=== PATIENT | male | born 1945 | race Caucasian/White ===

== ENCOUNTER 2016-07-01 13:33 | Emergency (ER) | payer OTHER ==
[~2016-07-01] VITALS: Ht 167.6 cm; Wt 70.9 kg
[2016-07-01 13:58] VITALS: BP 125/62
[2016-07-01] MEDS ORDERED: WARFARIN SODIUM2 MG PO (14:40)
[2016-07-01] MEDS ORDERED: METOPROLOL TAR100 MG PO (14:41)
[2016-07-01] MEDS ORDERED: OMEPRAZOLE20 MG PO (14:42)
[2016-07-01] MEDS ORDERED: CARDIZEM CD,CA120 MG PO (14:42)
[2016-07-01] MEDS ORDERED: ALPRAZOLAM0.25 M2 PO ×2 (14:42→14:44)
[2016-07-01] MEDS ORDERED: BUMETANIDE2 MG PO (14:42)
[2016-07-01] MEDS ORDERED: SPIRIVA1 INHALATI IH (14:43)
[2016-07-01] MEDS ORDERED: CENTRUM SILVER1 EAC3 PO (14:43)
[2016-07-01] MEDS ORDERED: ODOR FREE GARL1 EACH PO (14:43)
[2016-07-01] MEDS ORDERED: PROAIR HFA8.5 GM IH (14:43)
[2016-07-01] MEDS ORDERED: POTASSIUM CHLO10 ME3 PO (14:43)
[2016-07-01 15:48] LABS: INTER. NORMALIZED RATIO 2.5; PROTHROMBIN TIME 26.2 (9.2-11.2)
== END 2016-07-01 16:32 | disposition home or self-care (01) ==
LOC: EME 13:33
PROVIDERS: Physician Assistant
DX: S90.31XA Contusion of right foot, initial encounter (principal); W20.8XXA Other cause of strike by thrown, projected or falling object, initial encounter; Z79.01 Long term (current) use of anticoagulants
CPT/HCPCS: 73630; 85610; 99281; 99284

== ENCOUNTER 2017-12-01 13:39 | Inpatient (IN) | payer OTHER ==
[~2017-12-01] VITALS: Ht 167.6 cm; Wt 76.6 kg
[2017-12-01] VITALS (27 sets, daily range): BP systolic 92–119; BP diastolic 55–78
[~2017-12-01 13:39] MED LIST: ALPRAZOLAM0.25 M2 PO; BUMETANIDE2 MG PO; CARDIZEM CD,CA120 MG PO; CENTRUM SILVER1 EAC3 PO; METOPROLOL SUC100 MG PO; ODOR FREE GARL1 EACH PO; OMEPRAZOLE20 MG PO; POTASSIUM CHLO10 ME3 PO; PROAIR HFA8.5 GM IH; SPIRIVA1 INHALATI IH; WARFARIN SODIUM2 MG PO
[2017-12-01 14:30] LABS: HEMATOCRIT 20.3 % (38.0-50.0); HEMOGLOBIN 5.9 G/DL (12.5-16.6); MCHC 29.1 G/DL (30.0-36.0); MCV 72.2 FL (86-99); PLATELET COUNT 283 K/uL (156-360); RBC DIS.WIDTH-SD 51.7 % (39-53); RED BLOOD COUNT 2.81 M/uL (4.00-5.50); WHITE BLOOD COUNT 15.2 K/uL (4.1-10.2)
[2017-12-01 14:31] LABS: CHLORIDE 95 mEq/L (99-109); POTASSIUM 5.6 mEq/L (3.7-5.4); SODIUM 133 mEq/L (136-147)
[2017-12-01 14:32] LABS: GLUCOSE 152 mg/dL (70-99)
[2017-12-01 14:36] LABS: CREATININE 1.9 mg/dL (0.6-1.3); GFR ESTIMATE (CALCULATED) 37 mL/min/ (58.99-99999)
[2017-12-01 14:37] LABS: UREA NITROGEN (BUN) 92 mg/dL (9-23)
[2017-12-01 14:39] LABS: INTER. NORMALIZED RATIO 5.2
[2017-12-01] MEDS ORDERED: METOPROLOL SUC100 MG PO (15:14)
[2017-12-01] MEDS ORDERED: WARFARIN SODIUM2 MG PO (15:17)
[2017-12-01] MEDS ORDERED: ACETAMINOPHEN325 M1 PO (15:19)
[2017-12-01] MEDS ORDERED: RECTASMOOTHE30 GM TP (15:20)
[2017-12-01] MEDS ORDERED: EPLERENONE25 MG PO (15:21)
[2017-12-01] MEDS ORDERED: SILDENAFIL20 MG PO (15:21)
[2017-12-01] MEDS ORDERED: FISH OIL 1,0001 EAC7 PO (15:21)
[2017-12-01] MEDS ORDERED: MAGNESIUM OXID400 MG PO (15:22)
[2017-12-02] VITALS (37 sets, daily range): BP systolic 95–135; BP diastolic 54–78
[2017-12-02 00:04] LABS: TROP-I INTERPRETATION NEGATIVE; TROPONIN-I 0.02 ng/mL (0.0-0.30)
[2017-12-02 04:12] LABS: HEMATOCRIT 30.4 % (38.0-50.0); HEMOGLOBIN 9.5 G/DL (12.5-16.6); MCH 23.9 PG (29.0-34.0); MCHC 31.3 G/DL (30.0-36.0); MCV 76.4 FL (86-99); PLATELET COUNT 270 K/uL (156-360); RBC DIS.WIDTH-CV 19.9 % (11.8-14.6); RBC DIS.WIDTH-SD 55.1 % (39-53); RED BLOOD COUNT 3.98 M/uL (4.00-5.50); WHITE BLOOD COUNT 20.5 K/uL (4.1-10.2)
[2017-12-02 04:18] LABS: INTER. NORMALIZED RATIO 2.8
[2017-12-02 04:22] LABS: CHLORIDE 96 mEq/L (99-109); POTASSIUM 5.3 mEq/L (3.7-5.4); SODIUM 137 mEq/L (136-147)
[2017-12-02 04:24] LABS: GLUCOSE 171 mg/dL (70-99)
[2017-12-02 04:26] LABS: TROP-I INTERPRETATION NEGATIVE; TROPONIN-I 0.03 ng/mL (0.0-0.30)
[2017-12-02 04:28] LABS: CREATININE 1.9 mg/dL (0.6-1.3); GFR ESTIMATE (CALCULATED) 37 mL/min/ (58.99-99999)
[2017-12-02 04:29] LABS: UREA NITROGEN (BUN) 90 mg/dL (9-23)
[2017-12-02 07:44] LABS: TROP-I INTERPRETATION NEGATIVE; TROPONIN-I 0.03 ng/mL (0.0-0.30)
[2017-12-02 13:24] LABS: BASOPHIL (%) 0.1 % (0-1); EOSINOPHIL (%) 0.1 % (0-5); HEMATOCRIT 29.9 % (38.0-50.0); IMMATURE GRANULOCYTE (%) 1.3 % (0.0-0.7); LYMPHOCYTE (%) 3.3 % (15-42); LYMPHOCYTE COUNT 0.7 K/uL (1.0-2.8); MCH 23.2 PG (29.0-34.0); MCHC 30.1 G/DL (30.0-36.0); MCV 77.1 FL (86-99); MONOCYTE (%) 6.5 % (3-12); MONOCYTE COUNT 1.4 K/uL (0-0.8); NEUTROPHIL (%) 88.7 % (45-76); NEUTROPHIL COUNT 18.6 K/uL (1.8-6.4); NRBC (%) 0.3 /100 WBC (0-0); PLATELET COUNT 240 K/uL (156-360); RBC DIS.WIDTH-CV 19.9 % (11.8-14.6); RBC DIS.WIDTH-SD 55.4 % (39-53); RED BLOOD COUNT 3.88 M/uL (4.00-5.50)
[2017-12-02 13:44] LABS: INTER. NORMALIZED RATIO 2.5
[2017-12-03] VITALS (19 sets, daily range): BP systolic 97–194; BP diastolic 52–97
[2017-12-03 05:47] LABS: BASOPHIL (%) 0.1 % (0-1); EOSINOPHIL (%) 0.3 % (0-5); HEMOGLOBIN 8.2 G/DL (12.5-16.6); IMMATURE GRANULOCYTE (%) 0.8 % (0.0-0.7); INTER. NORMALIZED RATIO 1.8; LYMPHOCYTE (%) 4.2 % (15-42); LYMPHOCYTE COUNT 0.6 K/uL (1.0-2.8); MCHC 29.3 G/DL (30.0-36.0); MCV 78.7 FL (86-99); NEUTROPHIL (%) 87.6 % (45-76); NEUTROPHIL COUNT 12.6 K/uL (1.8-6.4); PLATELET COUNT 217 K/uL (156-360); RBC DIS.WIDTH-CV 19.9 % (11.8-14.6); RBC DIS.WIDTH-SD 56.3 % (39-53); RED BLOOD COUNT 3.56 M/uL (4.00-5.50); WHITE BLOOD COUNT 14.4 K/uL (4.1-10.2)
[2017-12-03 05:50] LABS: PTT 30.8 SEC (25-37)
[2017-12-03 06:08] LABS: CHLORIDE 98 MEQ/L (99-109); CREATININE 1.5 MG/DL (0.6-1.3); GFR ESTIMATE (CALCULATED) 49 mL/min/ (58.99-99999); GLUCOSE 143 mg/dL (70-99); POTASSIUM 4.5 MEQ/L (3.7-5.4); SODIUM 141 MEQ/L (136-147); UREA NITROGEN (BUN) 81 mg/dL (9-23)
[2017-12-04 03:31] VITALS: BP 133/60
[2017-12-04 06:10] LABS: HEMOGLOBIN 8.5 G/DL (12.5-16.6); MCH 23.2 PG (29.0-34.0); MCHC 29.3 G/DL (30.0-36.0); MCV 79.2 FL (86-99); PLATELET COUNT 233 K/uL (156-360); RBC DIS.WIDTH-CV 20.4 % (11.8-14.6); RBC DIS.WIDTH-SD 57.8 % (39-53); RED BLOOD COUNT 3.66 M/uL (4.00-5.50); WHITE BLOOD COUNT 16.1 K/uL (4.1-10.2)
[2017-12-04 06:19] LABS: INTER. NORMALIZED RATIO 1.9
[2017-12-04 08:00] VITALS: BP 125/67
[2017-12-04 12:15] VITALS: BP 119/59
[2017-12-04 19:15] VITALS: BP 111/59
[2017-12-04 22:30] VITALS: BP 124/57
[2017-12-05 03:30] VITALS: BP 139/66
[2017-12-05 06:54] LABS: HEMATOCRIT 30.2 % (38.0-50.0); HEMOGLOBIN 8.7 G/DL (12.5-16.6); MCH 23.2 PG (29.0-34.0); MCHC 28.8 G/DL (30.0-36.0); MCV 80.5 FL (86-99); NRBC (%) 0.1 /100 WBC (0-0); PLATELET COUNT 211 K/uL (156-360); RBC DIS.WIDTH-CV 20.4 % (11.8-14.6); RBC DIS.WIDTH-SD 59.4 % (39-53); RED BLOOD COUNT 3.75 M/uL (4.00-5.50); WHITE BLOOD COUNT 15.7 K/uL (4.1-10.2)
[2017-12-05 07:23] LABS: BASOPHIL (%) 0.1 % (0-1); CHLORIDE 98 MEQ/L (99-109); CREATININE 1.4 MG/DL (0.6-1.3); EOSINOPHIL (%) 0.2 % (0-5); GFR ESTIMATE (CALCULATED) 53 mL/min/ (58.99-99999); GLUCOSE 160 mg/dL (70-99); IMMATURE GRANULOCYTE (%) 1.2 % (0.0-0.7); LYMPHOCYTE COUNT 0.5 K/uL (1.0-2.8); MONOCYTE (%) 5.7 % (3-12); MONOCYTE COUNT 0.9 K/uL (0-0.8); NEUTROPHIL (%) 89.8 % (45-76); NEUTROPHIL COUNT 14.1 K/uL (1.8-6.4); POTASSIUM 3.9 MEQ/L (3.7-5.4); SODIUM 140 MEQ/L (136-147); UREA NITROGEN (BUN) 68 mg/dL (9-23)
[2017-12-05 07:25] VITALS: BP 108/58
[2017-12-05] MEDS ORDERED: IRON325 M1 PO (09:56)
[2017-12-05 12:14] VITALS: BP 101/57
[2017-12-05 15:35] VITALS: BP 103/58
[2017-12-05] MEDS ORDERED: ALBUTEROL2.5 MG/0.5 AEROSOL (17:06)
== END 2017-12-05 17:53 | disposition home health service (06) | DRG 377 ==
LOC: EME 13:39 → 5SOUTH 16:44 → EDOF 16:44 → 4WEST 16:44 → ENRESERV 16:46 → 4WEST 17:43 → ENRESERV 12-02 18:26 → 5SOUTH 12-02 19:37 → ENRESERV 12-03 09:03 → 4EAST 12-03 09:08
PROVIDERS: Internal Medicine; Internal Medicine Critical Care Medicine; Internal Medicine Gastroenterology; Physician Assistant; Surgery
PROC: 30233N1 Transfusion of Nonautologous Red Blood Cells into Peripheral Vein, Percutaneous Approach (ICD-10-PCS; 2017-12-01)
PROC: 30233L1 Transfusion of Nonautologous Fresh Plasma into Peripheral Vein, Percutaneous Approach (ICD-10-PCS; 2017-12-02)
PROC: 0DJ08ZZ Inspection of Upper Intestinal Tract, Via Natural or Artificial Opening Endoscopic (ICD-10-PCS; principal; 2017-12-03)
DX: K92.2 Gastrointestinal hemorrhage, unspecified (principal); D68.32 Hemorrhagic disorder due to extrinsic circulating anticoagulants; I50.23 Acute on chronic systolic (congestive) heart failure; J96.11 Chronic respiratory failure with hypoxia; T45.515A Adverse effect of anticoagulants, initial encounter; I48.2 Chronic atrial fibrillation; K64.9 Unspecified hemorrhoids; N18.3 Chronic kidney disease, stage 3 (moderate); I13.0 Hypertensive heart and chronic kidney disease with heart failure and stage 1 through stage 4 chronic kidney disease, or unspecified chronic kidney disease; D62 Acute posthemorrhagic anemia; J44.9 Chronic obstructive pulmonary disease, unspecified; Z79.01 Long term (current) use of anticoagulants; I27.81 Cor pulmonale (chronic); I27.29 Other secondary pulmonary hypertension; Z86.010 Personal history of colon polyps; Z53.9 Procedure and treatment not carried out, unspecified reason; J98.11 Atelectasis
CPT/HCPCS: 71045; 80048; 82948; 83880; 84145 90; 84484; 85014; 85018; 85025; 85027; 85610; 85730; 86850; 86900; 86901; 86920; 87641; 93005; 94640; 94640 76; 94760; 94799; 99281; 99285; C9113; J1756; J1940; J2250; J7050; J7120; P9016; P9017